=== PATIENT | female | born 1990 | race Caucasian/White ===

== ENCOUNTER 2022-05-01 08:09 | Outpatient (CLI) | payer BC, SELFPAY ==
[2022-05-01 11:04] LABS: Free T4 Free Thyroxine 1.12 ng/mL (0.78-2.19)
[2022-05-05 20:42] LABS: FSH 9.6 mIU/mL (***); LH 5.2 mIU/mL (***); Progesterone 0.5 ng/mL (***); Prolactin 62.5 ng/mL (***)
== END 2022-05-01 08:10 | disposition home or self-care (01) ==
LOC: ANHLAB 08:11
PROVIDERS: Visit Provider Obstetrics & Gynecology
DX: N92.6 Irregular menstruation, unspecified (principal)
CPT/HCPCS: 36415; 83001; 83002; 84144; 84146; 84439; 84443

== ENCOUNTER 2023-03-02 09:41 | Emergency (ER) | payer BC, SELFPAY ==
[2023-03-02 09:59] VITALS: BP 126/90; PULSE 81; RESP 16; TEMP 36.7; O2SAT 100
--- NOTE | 2023-03-02 10:14 | ED.ANIMALBIT ---
HPI - Animal Bite General Chief Complaint: Animal Bite Stated Complaint: Dog bite Time Seen by Provider: 03/02/23 10:15 Source: patient, RN notes reviewed and old records reviewed Mode of arrival: ambulatory Limitations: no limitations History of Present Illness HPI narrative: 32-year-old female who presents to [facility] with complaints of being bit on her left index finger by her dog last night with puncture wounds noted to distal aspect of left index finger with some swelling of finger. Patient denies any purulent drainage from her finger or intolerable discomfort. Patient reports that her dog's shots are up to date. She states that she is not sure when last tetanus was received. MD complaint: animal bite Onset (ago): day(s) (1) Animal: dog Description of animal: household pet Mechanism: bite Location: other (left index finger) Severity scale (1-10): 3 Treatments prior to arrival: other (cleansing of wound) Related Data Home Medications Medication Instructions Recorded Confirmed prenat.vits,navarro,[id number] 1 tablet PO DAILY 01/30/22 02/09/23 Allergies Allergy/AdvReac Type Severity Reaction Status Date / Time No Known Allergies Allergy Verified 03/02/23 10:05 Review of Systems Review of Systems: CONSTITUTIONAL: Denies fever, chills, or sweats. EYES: Denies visual changes, redness, or discharge. ENT: Denies rhinorrhea, congestion, sore throat, or otalgia. CARDIOVASCULAR: Denies chest pain, palpitations, or edema. RESPIRATORY: Denies cough or dyspnea. GASTROINTESTINAL: Denies abdominal pain, nausea, vomiting, or diarrhea. GENITOURINARY: Denies dysuria or hematuria. SKIN: Denies rash or itching.positive for puncture wounds to left index finger MUSCULOSKELETAL: Denies back pain, joint pain, or myalgia. NEUROLOGIC: Denies headache, numbness, or weakness. PSYCHIATRIC: Denies anxiety or depression. All systems reviewed & are unremarkable except as noted in HPI and below PMFSH Past Medical History Medical History Pituitary microadenoma Surgical History Surgical History History of knee surgery x 2 [place] teeth removed Family History Family History Father Hypertension Mother Family history of malignant neoplasm of breast in first degree relative Social History Social History Smoking status: Never smoker Second hand tobacco smoke exposure: No Alcohol intake: current Substance use: never Substance use type: does not use Lack of Transportation: No Lack of Food: Never True Current Housing: I Have Housing Concerned About Future Housing: No Difficulty Paying Gas/Electric Bills: No Difficulty Paying for Meds: No Currently Unemployed: No Education: Master's Degree or Higher Difficulty w/ Childcare or Family Care: No Comments At time of signature, agree with nursing past medical, surgical, social and family history. There is no relevant family history pertinent to the presenting complaint Exam Narrative: GENERAL: Well-appearing, well-nourished, and in no acute distress. HEAD: Normocephalic, atraumatic. EYES: PERRLA and EOMI. ENT: Nares clear, no rhinorrhea or epistaxis. Mucous membranes moist. NECK: Supple.no lymphadenopathy CHEST: Clear to auscultation. No respiratory distress. SAO2 100% on room air HEART: Regular rate and rhythm. No murmur heard. Normal peripheral pulses. ABDOMEN: Soft, nontender, nondistended, normal active bowel sounds. EXTREMITIES: Normal range of motion. No edema. SKIN: Warm, dry, no rash. 3 puncture wounds to left distal index finger with no injury to nail bed, some swelling to finger noted. Circulation, sensation and mobility present to left index finger NEURO: No focal deficits. Alert and oriented x3. Course Course Emerg
[2023-03-02] MEDS: TETANUS,DIPHTHERIA,AC PERTUSSIS ADULT (0.5 ML) BOOSTRIX IM (10:56)
== END 2023-03-02 10:49 | disposition home or self-care (01) ==
PROVIDERS: Emergency Provider Registered Nurse
DX: S61.251A Open bite of left index finger without damage to nail, initial encounter (principal); Z23 Encounter for immunization; W54.0XXA Bitten by dog, initial encounter
CPT/HCPCS: 90471; 90715; 99213; G0463

== ENCOUNTER 2023-10-06 15:55 | Outpatient (CLI) | payer BC, SELFPAY ==
[2023-10-06 16:15] VITALS: BP 127/64; PULSE 70
[2023-10-06 16:42] LABS: Basophils Percent Auto 0.2 % (0.2-1.2); Eosinophils Absolute Auto 0.2 K/mm3 (0-0.3); Eosinophils Percent Auto 1.4 % (0-4.4); Hematocrit 35.6 % (37.0-47.0); Hemoglobin 12.2 g/dL (12.0-15.0); Immature Granulocyte Absolute 0.08 K/mm3 (0.00-0.031); Immature Granulocyte Percent A 0.7 % (0-0.5); Lymphocytes Absolute Auto 1.91 K/mm3 (0.9-3.2); Mean Corpuscular HGB Conc 34.3 g/dl (32-36); Mean Corpuscular Hemoglobin 30.7 pg (26-34); Mean Corpuscular Volume 89.7 fl (80-100); Monocytes Absolute Auto 0.7 K/mm3 (0.1-0.6); Neutrophils Absolute Auto 8.4 K/mm3 (1.3-6.7); Neutrophils Percent Auto 74.7 % (45.5-73.1); Platelet Count Result 230 k/mm3 (150-375); Red Blood Count 3.97 M/mm3 (4.2-5.4); Red Cell Distribution Width 12.7 % (11.5-14.5); White Blood Count 11.2 K/mm3 (4.5-10.0)
[2023-10-06 16:45] VITALS: BP 127/64; PULSE 75
[2023-10-06 16:50] VITALS: BP 131/72; PULSE 66
[2023-10-06 16:55] LABS: Alanine Aminotransferase 10 U/L (6-35); Albumin Level 3.6 g/dL (3.5-5.1); Alkaline Phosphatase 75 U/L (38-126); Anion Gap 7 mmol/L (4-12); Aspartate Amino Transferase 17 U/L (14-36); Bilirubin,Total 0.2 mg/dL (0.2-1.3); Blood Urea Nitrogen 11 mg/dL (7-17); Calcium 8.9 mg/dL (8.4-10.2); Carbon Dioxide 21 mmol/L (22-30); Chloride 108 mmol/L (98-107); Estimated Glomerular Filt Rate > 60; Glucose 97 mg/dL (65-110); Potassium 3.6 mmol/L (3.4-5.0); Sodium 136 mmol/L (137-145); Uric Acid 4.1 mg/dL (2.5-7.5)
[2023-10-06 17:00] VITALS: BP 129/67; PULSE 65
[2023-10-06 17:03] LABS: Appearance Urine Clear (Clear); Bacteria Urine 2+ /hpf; Bilirubin Urine Negative (Negative); Blood Urine Negative (Negative); Color Urine Yellow (Yellow); Glucose Urine UA Negative (Negative); Ketones Urine Negative (Negative); Leukocyte Esterase Ur Trace LEU/UL (Negative); Need Manual Microscopic Reviewed; Nitrate Urine Negative (Negative); Non Pathogenic Casts 0-2; Protein Urine Negative (Negative); RBC Urine 0-2 /hpf (0-2); Specific Grav Ur 1.011 (1.001-1.035); Squamous Epithelial Cell Urine Occasional /hpf (Few); Urobilinogen Urine 0.2 mg/dL (<2.0)
[2023-10-06 17:04] LABS: Add Urine Microscopic? YES
[2023-10-06 17:15] VITALS: BP 130/68; PULSE 66
[2023-10-06 17:30] VITALS: BP 128/79; PULSE 65
[2023-10-06 17:33] LABS: HIV 1/2 Ab P24 Ag Result Negative (Negative)
--- NOTE | 2023-10-06 17:37 | PC.NURSE ---
Dr. Ortega notified of NST, lab results and vital signs. Okay to discharge
[2023-10-06 17:42] LABS: Creatinine Urine 48.7 mg/dL; Total Protein Urine Random 10 mg/dL; Ur Ttl Prot Creatinine Ratio 0.21 mg/mg (0-0.20)
[2023-10-07 13:43] LABS: Rapid Plasma Reagin Non-Reactive (NonReactive)
== END 2023-10-06 17:40 ==
LOC: ANHOBOP 16:01 → ANHOBPP 16:01
PROVIDERS: Visit Provider Obstetrics & Gynecology
DX: O13.9 Gestational [pregnancy-induced] hypertension without significant proteinuria, unspecified trimester (principal); Z3A.00 Weeks of gestation of pregnancy not specified
CPT/HCPCS: 36415; 59025; 80053; 81001; 82570; 84156; 84550; 85025; 86592; 86703; 87086; 99199; G0432

== ENCOUNTER 2023-10-14 01:09 | Outpatient (CLI) | payer BC, SELFPAY ==
--- NOTE | 2023-10-14 01:09 | PC.NURSE ---
Pt arrives to unit with leaking.
[2023-10-14 01:45] VITALS: TEMP 36.6
--- NOTE | 2023-10-14 01:49 | PC.NURSE ---
Updated Dr. Ireland on pt, negative ROM plus, tracing, and vital signs. Orders received to discharge pt with instructions on when to return to the unit and to keep next scheduled appointment.
[2023-10-14 01:50] VITALS: BP 134/73; PULSE 64
--- NOTE | 2023-10-14 01:57 | PC.NURSE ---
Pt discharged with instructions on when to return to the unit and to keep next scheduled appointment.
[2023-10-14 02:13] LABS: OBXCEM ROM Plus Negative
== END 2023-10-14 01:57 | disposition home or self-care (01) ==
LOC: ANHOBOP 01:53 → ANHLDR 10-19 15:34
PROVIDERS: Obstetrics & Gynecology; Visit Provider Obstetrics & Gynecology
DX: O42.90 Premature rupture of membranes, unspecified as to length of time between rupture and onset of labor, unspecified weeks of gestation (principal); Z3A.00 Weeks of gestation of pregnancy not specified
CPT/HCPCS: 59025; 84112; 99199

== ENCOUNTER 2023-11-03 13:34 | Outpatient (CLI) | payer BC, SELFPAY ==
--- NOTE | ~2023-11-03 | US_ITS ---
EXAMINATION: US OB limited DATE: 11/03/2023 14:50 INDICATION: Hypertension. Third trimester. TECHNIQUE: Real-time ultrasound of the pelvis was performed. COMPARISON: None. FINDINGS: There is a single fetus in vertex presentation. The placenta is anterior. heart rate is 148 be ats per minute (bpm). The amniotic fluid index is 11.4 cm cm, which is normal. IMPRESSION: 1. Single living fetus in vertex presentation. Reviewed, dictated and finalized at location A.
[2023-11-03 14:00] VITALS: BP 132/70; PULSE 67
[2023-11-03 14:11] LABS: Basophils Percent Auto 0.2 % (0.2-1.2); Eosinophils Absolute Auto 0.1 K/mm3 (0-0.3); Eosinophils Percent Auto 1.2 % (0-4.4); Hematocrit 37.6 % (37.0-47.0); Hemoglobin 12.8 g/dL (12.0-15.0); Immature Granulocyte Absolute 0.04 K/mm3 (0.00-0.031); Immature Granulocyte Percent A 0.5 % (0-0.5); Lymphocytes Percent Auto 18.2 % (18.3-44.2); Mean Corpuscular Hemoglobin 30.6 pg (26-34); Mean Platelet Volume 10.5 fl (7.4-10.4); Monocytes Absolute Auto 0.5 K/mm3 (0.1-0.6); Monocytes Percent Auto 5.9 % (2.6-8.5); Neutrophils Absolute Auto 6.1 K/mm3 (1.3-6.7); Platelet Count Result 243 k/mm3 (150-375); Red Blood Count 4.18 M/mm3 (4.2-5.4); Red Cell Distribution Width 12.7 % (11.5-14.5); White Blood Count 8.3 K/mm3 (4.5-10.0)
[2023-11-03 14:15] VITALS: BP 132/73; PULSE 72
[2023-11-03 14:21] LABS: Alanine Aminotransferase 12 U/L (6-35); Albumin Level 3.7 g/dL (3.5-5.1); Alkaline Phosphatase 122 U/L (38-126); Anion Gap 12 mmol/L (4-12); Aspartate Amino Transferase 19 U/L (14-36); Bilirubin,Total 0.3 mg/dL (0.2-1.3); Blood Urea Nitrogen 7 mg/dL (7-17); Calcium 8.8 mg/dL (8.4-10.2); Carbon Dioxide 18 mmol/L (22-30); Chloride 104 mmol/L (98-107); Estimated Glomerular Filt Rate > 60; Glucose 113 mg/dL (65-110); Potassium 3.6 mmol/L (3.4-5.0); Sodium 134 mmol/L (137-145); Uric Acid 5.8 mg/dL (2.5-7.5)
[2023-11-03 14:27] LABS: Appearance Urine Clear (Clear); Bacteria Urine 3+ /hpf; Bilirubin Urine Negative (Negative); Blood Urine Non-Hemolyzed Trace (Negative); Color Urine Yellow (Yellow); Creatinine Urine 56.2 mg/dL; Glucose Urine UA Negative (Negative); Ketones Urine Negative (Negative); Leukocyte Esterase Ur 2+ LEU/UL (Negative); Need Manual Microscopic Reviewed; Nitrate Urine Negative (Negative); Non Pathogenic Casts 0-2; Protein Urine Negative (Negative); RBC Urine 0-2 /hpf (0-2); Specific Grav Ur 1.006 (1.001-1.035); Squamous Epithelial Cell Urine Occasional /hpf (Few); Total Protein Urine Random 10 mg/dL; Ur Ttl Prot Creatinine Ratio 0.18 mg/mg (0-0.20); Urobilinogen Urine 0.2 mg/dL (<2.0); WBC Urine 21-50 /hpf (0-3); pH Urine 6.5 (5.0-9.0)
[2023-11-03 14:28] VITALS: BMI 35.6
[2023-11-03 14:29] VITALS: BP 132/70; PULSE 85
[2023-11-03 14:30] LABS: Add Urine Microscopic? YES
--- NOTE | 2023-11-03 15:14 | PC.NURSE ---
Dr. Ortega notified of NST, lab results, vital signs, and US. Orders received to [facility] home with 24 hour urine and discharge.
== END 2023-11-03 15:14 | disposition home or self-care (01) ==
LOC: ANHOBOP 13:36 → ANHOBPP 13:37
PROVIDERS: Visit Provider Obstetrics & Gynecology
DX: O13.9 Gestational [pregnancy-induced] hypertension without significant proteinuria, unspecified trimester (principal); Z3A.00 Weeks of gestation of pregnancy not specified
CPT/HCPCS: 36415; 59025; 76815; 80053; 81001; 82570; 84156; 84550; 85025; 87086; 99199

== ENCOUNTER 2023-11-04 16:27 | Outpatient (CLI) | payer BC, SELFPAY ==
[2023-11-04 16:27] VITALS: BMI 35.4
[2023-11-04 16:59] LABS: Collection Time Urine 24 HOURS
[2023-11-04 17:15] LABS: Total Volume 24 Hour Urine 2000 ml
[2023-11-04 17:15] LABS: Patient Weight 213 Lbs
[2023-11-04 17:16] LABS: Total Volume 24 Hour Urine 2000 ml
[2023-11-04 17:21] LABS: Total Protein Urine 24 Hr 200 mg/24hr (28-141); Total Protein Urine Random 10 mg/dL
[2023-11-04 17:22] LABS: Creatinine Clearance Urine 176.8 ml/min (75-125); Creatinine Urine 89.4 mg/dL
== END 2023-11-04 16:28 | disposition home or self-care (01) ==
LOC: ANHOBOP 16:36
PROVIDERS: Visit Provider Obstetrics & Gynecology
DX: Z34.90 Encounter for supervision of normal pregnancy, unspecified, unspecified trimester (principal); Z3A.00 Weeks of gestation of pregnancy not specified
CPT/HCPCS: 81050; 82575; 84156

== ENCOUNTER 2023-11-06 08:30 | Outpatient (RCR) | payer BC, SELFPAY ==
[2023-11-06 09:31] VITALS: BP 111/69; PULSE 68
== END 2024-02-04 23:59 | disposition home or self-care (01) ==
LOC: ANHOBOP 08:30
PROVIDERS: Visit Provider Obstetrics & Gynecology
DX: O26.893 Other specified pregnancy related conditions, third trimester (principal); R03.0 Elevated blood-pressure reading, without diagnosis of hypertension; Z3A.36 36 weeks gestation of pregnancy
CPT/HCPCS: 59025

== ENCOUNTER 2023-11-11 19:22 | Inpatient (IN) | payer BC, SELFPAY ==
[2023-11-11] VITALS (17 sets, daily range): BP systolic 108–135; BP diastolic 63–106; PULSE 55–85; TEMP 37.1; BMI 35.4
--- NOTE | 2023-11-11 19:22 | LDADM ---
This patient, Brook Sahu, was admitted to Labor/Delivery/Recovery 106 on 11/11/23 at 19:22. Plans for labor, pain management and were discussed with patient. Patient/family oriented to hospital policies and general routines including ID bracelet, bed and alarms, visiting hours, pain management, procedures, bathroom and other care routines, personal items, smoking policy, room service/diet and guest tray routines, infant security routines, and visiting hours. Patient/Family are encouraged to report perceived risks to care and to ask questions if they do not understand what they are told or what they should do. See OBIX for further documentation.
[2023-11-11 19:57] LABS: Basophils Percent Auto 0.2 % (0.2-1.2); Eosinophils Absolute Auto 0.1 K/mm3 (0-0.3); Eosinophils Percent Auto 0.9 % (0-4.4); Hematocrit 38.6 % (37.0-47.0); Hemoglobin 13.3 g/dL (12.0-15.0); Immature Granulocyte Absolute 0.05 K/mm3 (0.00-0.031); Immature Granulocyte Percent A 0.4 % (0-0.5); Lymphocytes Absolute Auto 2.63 K/mm3 (0.9-3.2); Lymphocytes Percent Auto 21.3 % (18.3-44.2); Mean Corpuscular HGB Conc 34.5 g/dl (32-36); Mean Corpuscular Hemoglobin 30.6 pg (26-34); Mean Corpuscular Volume 88.7 fl (80-100); Mean Platelet Volume 10.5 fl (7.4-10.4); Monocytes Absolute Auto 0.6 K/mm3 (0.1-0.6); Monocytes Percent Auto 4.9 % (2.6-8.5); Neutrophils Absolute Auto 8.9 K/mm3 (1.3-6.7); Neutrophils Percent Auto 72.3 % (45.5-73.1); Platelet Count Result 245 k/mm3 (150-375); Red Blood Count 4.35 M/mm3 (4.2-5.4); Red Cell Distribution Width 12.6 % (11.5-14.5); White Blood Count 12.3 K/mm3 (4.5-10.0)
[2023-11-11] MEDS: LACTATED RINGERS 1,000 ML 125 ML IV CONT (19:58)
[2023-11-11] MEDS: miSOPROStol 25 MCG TABLET BUCCAL (19:59)
[2023-11-11] MEDS: AMPICILLIN 2 GM/NS 100 ML 2 GM/100 ML BAG IVPB (19:59)
[2023-11-11 20:23] LABS: Rapid Plasma Reagin Non-Reactive (NonReactive)
[2023-11-11 20:26] LABS: Alanine Aminotransferase 11 U/L (6-35); Albumin Level 3.7 g/dL (3.5-5.1); Alkaline Phosphatase 119 U/L (38-126); Anion Gap 12 mmol/L (4-12); Aspartate Amino Transferase 20 U/L (14-36); Bilirubin,Total 0.3 mg/dL (0.2-1.3); Blood Urea Nitrogen 9 mg/dL (7-17); Calcium 9.4 mg/dL (8.4-10.2); Carbon Dioxide 19 mmol/L (22-30); Chloride 104 mmol/L (98-107); Estimated Glomerular Filt Rate > 60; Glucose 111 mg/dL (65-110); Potassium 3.6 mmol/L (3.4-5.0); Sodium 135 mmol/L (137-145); Uric Acid 5.6 mg/dL (2.5-7.5)
[2023-11-11 21:10] LABS: HIV 1/2 Ab P24 Ag Result Negative (Negative)
[2023-11-12] VITALS (157 sets, daily range): BP systolic 95–145; BP diastolic 42–105; PULSE 39–99; TEMP 36.3–37.3; O2SAT 79–100
[2023-11-12] MEDS: AMPICILLIN 1 GM/NS 50 ML 1 GM/50 ML BAG IVPB ×6 (00:02→20:17)
[2023-11-12] MEDS: miSOPROStol 25 MCG TABLET BUCCAL ×2 (00:02→04:33)
[2023-11-12] MEDS: miSOPROStol 25 MCG TABLET 50 MCG BUCCAL (09:34)
[2023-11-12] MEDS: OXYTOCIN 30 UNITS/NS 500 ML 30 UNITS/500 ML BAG IV CONT (14:07)
[2023-11-12] MEDS: LACTATED RINGERS 1,000 ML 125 ML IV CONT (18:24)
--- NOTE | 2023-11-12 22:11 | WPDANESEPP ---
Anes - Eval Pre Procedure Procedure: Labor epidural Date/Time: 11/12/23 22:11 Surgeon: Shannon Preop Diagnosis: Abdominal pain with contractions Pre Op Diagnosis: Induction of Labor Patient Data Age: 33 Gender: F Height: 1.65 m Weight: 96.5 kg Last Vital Signs Temp 99.1 F 11/12/23 20:00 Pulse 76 11/12/23 22:10 BP 127/58 L 11/12/23 22:10 Pulse Ox 98 11/12/23 22:10 O2 Del Method Room Air 11/11/23 20:45 Allergies Allergy/AdvReac Type Severity Reaction Status Date / Time No Known Allergies Allergy Verified 11/10/23 10:34 Home Medications Medication Instructions Recorded Confirmed Type prenat.vits,navarro,[id number] 1 tablet PO DAILY 01/30/22 11/09/23 History : gestational age HCG: positive Patient hx anesthesia problems: none Family hx anesthesia problems: none Results Review: All pre-operative results and documents have been reviewed as part of the pre-operative evaluation. COUNTS INCLUDE 234 BEDS AT THE [facility] Past Medical History Medical History (Updated 11/12/23 @ 22:13 by Leroy Amezquita Jr., CRNA) Gestational hypertension Obesity Pituitary microadenoma Prolactinoma Surgical History Surgical History History of knee surgery x 2 [place] teeth removed Family History Family History Father Hypertension Acute myocardial infarction Aneurysm Mother Family history of malignant neoplasm of breast in first degree relative Social History Social History Smoking status: Never smoker Second hand tobacco smoke exposure: No Alcohol intake: current Substance use: never Substance use type: does not use Do You Feel Safe in your Home?: Yes Lack of Transportation: No Lack of Food: Never True Current Housing: I Have Housing Concerned About Future Housing: No Difficulty Paying Gas/Electric Bills: No Difficulty Paying for Meds: No Currently Unemployed: No Education: Master's Degree or Higher Difficulty w/ Childcare or Family Care: No Spiritual care concerns: No Exam Day of Procedure 11/12/23 22:11 Patient weight: obese Heart: regular rate and rhythm Lungs: clear to auscultation Airway: Mallampati scale class II Neurological: alert and oriented
[2023-11-13] VITALS (168 sets, daily range): BP systolic 87–130; BP diastolic 44–86; PULSE 26–227; RESP 16–18; TEMP 36.6–37.6; O2SAT 82–100
[2023-11-13] MEDS: AMPICILLIN 1 GM/NS 50 ML 1 GM/50 ML BAG IVPB ×3 (00:20→07:50)
[2023-11-13] MEDS: LACTATED RINGERS 1,000 ML 125 ML IV CONT (06:15)
--- NOTE | 2023-11-13 07:47 | PM.IMHP ---
H&P: HPI History of Present Illness Date/Time: 11/13/23 07:47 Chief Complaint: Gestational hypertension Narrative: Patient is a 33 y/o G1 at 37 weeks with gestational hypertension admitted for medical induction of labor. No signs or symptoms of severe disease. course significant for history of prolactinoma. She stopped Car[place]oline at conception. No visual or headache symptoms throughout . She has been informed of diagnosis of PIH and risk and recommendation for delivery at 37 and risk of prolonging past the recommended delivery age. She has agreed with induction of labor. Review of Systems Review of Systems: All systems reviewed & are unremarkable except as noted in HPI and below Constitutional: Constitutional: Reports no additional constitutional complaints and Denies headache(s) Eyes: Eyes: Denies spots in vision ENT: Reports system reviewed and no additional complaints, except as documented and Denies headache(s) Cardiovascular: Cardiovascular: Denies chest pain and Denies dyspnea Respiratory: Respiratory: Denies dyspnea Gastrointestinal: Gastrointestinal: Reports no additional gastrointestinal complaints Genitourinary: Genitourinary: Reports amenorrhea Musculoskeletal: Musculoskeletal: Reports no additional musculoskeletal complaints Integumentary/Breasts: Skin/Breast: Denies breast mass and Denies rash Neurologic: Denies headache(s) Psychiatric: Psychiatric: Reports no additional psychiatric complaints [facility] Past Medical History Medical History (Updated 11/13/23 @ 07:55 by Fabian Ortega MD) Gestational hypertension Obesity Pituitary microadenoma Prolactinoma Surgical History Surgical History History of knee surgery x 2 [place] teeth removed Family History Family History Father Hypertension Acute myocardial infarction Aneurysm Mother Family history of malignant neoplasm of breast in first degree relative Social History Social History Smoking status: Never smoker Second hand tobacco smoke exposure: No Alcohol intake: current Substance use: never Substance use type: does not use Do You Feel Safe in your Home?: Yes Lack of Transportation: No Lack of Food: Never True Current Housing: I Have Housing Concerned About Future Housing: No Difficulty Paying Gas/Electric Bills: No Difficulty Paying for Meds: No Currently Unemployed: No Education: Master's Degree or Higher Difficulty w/ Childcare or Family Care: No Spiritual care concerns: No Meds Home Medications and Allergies Home Medications Medication Instructions Recorded Confirmed Type prenat.vits,navarro,[id number] 1 tablet PO DAILY 01/30/22 11/09/23 History Allergies Allergy/AdvReac Type Severity Reaction Status Date / Time No Known Allergies Allergy Verified 11/10/23 10:34 Vital Signs Vital Signs - 24 hr 11/12/23 08:00 11/12/23 08:45 11/12/23 12:55 Temperature Pulse Rate 70 71 72 Blood Pressure 115/72 117/67 138/77 Pulse Oximetry 11/12/23 13:00 11/12/23 13:15 11/12/23 13:30 Temperature Pulse Rate 72 71 72 Blood Pressure 132/74 127/79 139/81 Pulse Oximetry 11/12/23 13:45 11/12/23 14:00 11/12/23 14:15 Temperature Pulse Rate 73 71 76 Blood Pressure 131/77 130/77 124/73 Pulse Oximetry 11/12/23 14:30 11/12/23 14:45 11/12/23 15:00 Temperature 97.9 F Pulse Rate 71 71 67 Blood Pressure 134/73 129/80 131/79 Pulse Oximetry 11/12/23 15:15 11/12/23 15:30 11/12/23 15:46 Temperature Pulse Rate 74 69 69 Blood Pressure 139/82 143/71 H 136/84 Pulse Oximetry 11/12/23 16:00 11/12/23 16:15 11/12/23 16:31 Temperature Pulse Rate 65 69 68 Blood Pressure 141/63 H 128/69 128/105 H Pulse Oximetry 11/12/23 17:00 11/12/23
[2023-11-13] MEDS: SODIUM CHLORIDE 0.9% IV 300 ML 600 ML I-UTERINE (07:51)
--- NOTE | 2023-11-13 07:56 | PM.OBPNVD ---
OB - PN: Subj Subjective Date/time seen: 11/12/2330 Cat 1, irreg ctx, cervix /-3, will give another dose of Cytotec 50 buccal. OB - PN: Obj Data Labs 11/11/23 19:38 11/11/23 19:38 OB - PN A/P Time Spent With Patient Time: Total time spent is greater than 50% in coordination of care (as documented) at patient's floor/unit and/or counseling patient:
--- NOTE | 2023-11-13 07:57 | PM.OBPNVD ---
OB - PN: Subj Subjective Date/time seen: 11/12/23 45680 AROM clear OB - PN: Obj Data Labs 11/11/23 19:38 11/11/23 19:38 OB - PN A/P Time Spent With Patient Time: Total time spent is greater than 50% in coordination of care (as documented) at patient's floor/unit and/or counseling patient:
--- NOTE | 2023-11-13 07:58 | PM.OBPNLAB ---
Pain Control Date/time seen: 11/13/23 0800 Cat 2, 135, irreg ctx, cervix 7, continue Pitocin.
[2023-11-13] MEDS: OXYTOCIN 30 UNITS/NS 500 ML 30 UNITS/500 ML BAG 125 UNITS IV CONT (11:07)
--- NOTE | 2023-11-13 13:20 | P.PCNOB_ITS ---
OB - Vaginal Delivery Note Procedure Delivery date: 11/13/23 Events: Gestational Hypertension and Positive Group B Strep (GBS) Induction method: Per Misoprostol Protocol and Per Pitocin Protocol Delivery augmentation: Rupture of Membranes Delivery monitor: External FHT and Internal Uterine Route of delivery: Laceration Description: Vaginal ( small) and Labial ( [place] small) Narrative: She was admitted for [facility] for gestational hypertension without severe features. PIH labs on admission without any severe features. She had Cytotec times several doses and then she had assisted rupture membranes Pitocin was then started several hours after that. She did receive an IUPC. During labor tracing significant for occasional decelerations and a bradycardic episode this did resolve. Her Pitocin was stopped and then she made slow progress and Pitocin was then restarted and she progressed to complete. was vigorously crying upon delivery 's nose and mouth were suctioned at perineum with the bulb. Infant placed on maternal abdomen after the tight nuchal cord was surgically reduced. Cord blood and cord gases obtained. Pitocin continued and placenta delivered spontaneously and intact. She sustained a small vaginal laceration on the left and a small superior labial minora laceration both repaired with 3-0 Vicryl. Patient tolerated procedure well. EBL 150 cc. Baby Date of : 11/13/23 Time of : 10:35 Gestational Age by Date: 37 gender: Female Weight (pounds): 5 Weight (ounces): 11 presentation: vertex position: Right Occiput Anterior Placenta delivery description: Spontaneous Cord Vessel Description: 3 Vessels, Nuchal Cord (x1), Tight and Reduced (surgical) score one minute: 8 score five minutes: 9
--- NOTE | 2023-11-13 16:19 | OBPPTRN ---
1330-Patient transferred to post room # via ( ). Support person present. Oriented to unit, room, information board, rooming in, admission packet and security measures. Patient verbalizes understanding.
--- NOTE | 2023-11-13 16:25 | PC.NURSE ---
1540. Introductions were made, then consulted with patient to assess needs related to . Mother reports that her primary intent is to exclusively BF for babies 1st year of life, with introducing bottles so she can combo feed when she goes back to work. Encouraged understanding of the benefits of skin to skin (demonstrating unwrapping infant and placing upright on her chest), stimulating with massage touch, changing positions to encourage wakefulness, how to watch for early feeding cues, responsive feeding, feeding on demand (aiming for 8-12 times in 24 hours, about every 2-3 hours), milk production, building/maintaining a milk supply, duration of feeding, signs of adequate intake/output and how to record on the feeding sheet. Reviewed positioning with ear, shoulder, hip alignment, supporting the breast to facilitate a deep latch, asymmetrical latch (off-center), leading with the chin with a big, open, wide gape and body close to mother. struggled with many attemts to latch optimally to the R breast in cross-cradle position. Infant latched but did not continue to suckle after many repeated attempts, infant was sleepy. Mom encouraged to do S2S and try again when baby shows early feeding cues. Reviewed comfort measures of healing with a warm, wet washcloth to rinse breast, then leave open to air-dry, good handwashing when or touching the breast/nipples to prevent infection. Mother voiced understanding of skin to skin, stimulating with massage touch, responsive feedings, hand expressed colostrum, talking to to encourage if it has been 2 -2.5 hours since the start of the last , to call if infant does not latch, or if there is discomfort with . Resources used for education were facilitated with the visual educational handouts & mom and baby guide. Inpatient resources provided with feeding sheet, name written on the communication board, and the mom/baby guide. Parents voiced understanding of information, demonstrated learning and will call if there is a request for assistance. Reported to the Primary RN.
--- NOTE | 2023-11-13 17:40 | PC.NURSE ---
1730. Helped mom attempt to relatch and feed baby. She was showing an early sign of hunger cue with some stirring, and rapid eye movement. Baby was unsuccessful in latching due to acting to sleepy. Mom was able to hand express a few drops of colostrum and feed them to baby.Mom encouraged to do some more S2S and try to feed baby again when she shows early hunger cues. Hunger cues reviewed with mom and dad. Reported to primary RN.
[2023-11-13] MEDS: ACETAMINOPHEN 325 MG TABLET 650 MG PO (22:47)
[2023-11-14] VITALS: BP 129/75; PULSE 72; RESP 18; TEMP 37.1; O2SAT 99
[2023-11-14 04:00] VITALS: BP 117/84
--- NOTE | 2023-11-14 07:40 | PC.NURSE ---
Observed mother latching to the [right] breast in [football] position. [was not] able to maintain an appropriate latch for more than a few sucks. Mother [declines] nipple pain/discomfort [throughout feeding]. Discussed with parents that it is typical for babies to be off and on the breast for feedings during the first 24 hours. As wakes more throughout the day, she will hopefully maintain a latch better when she sucks more consistently. Encouraged mother to keep awake and nursing at the breast for 15 minutes. Mother taught to listen for infant swallowing during feedings. Reviewed using the blue feeding sheet to record time and duration of feeding. Mother voiced understanding of the education shared, to call for assistance if the infant does not latch or if there is discomfort with . Reported to the Primary RN.? ?
[2023-11-14 08:00] VITALS: BP 122/79; PULSE 65; RESP 16; TEMP 36.5; O2SAT 97
--- NOTE | 2023-11-14 08:36 | PM.OBPNVD ---
OB - PN: Subj Subjective Date/time seen: 11/14/23 08:05 Narrative: PPD#1 Brook reports doing well today. 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 Her pain is controlled. She is tolerating regular diet, voiding, passing gas, and ambulating without issues. She is breast feeding. OB - PN: Obj Data Labs 11/14/23 04:01 11/11/23 19:38 OB - PN A/P Assessment and Plan (1) Vaginal delivery: Code(s): O80 - Encounter for full-term uncomplicated delivery Status: Acute (2) Gestational hypertension: Qualifiers: Trimester: third trimester Qualified Code(s): O13.3 - Gestational [-induced] hypertension without significant proteinuria, third trimester Code(s): O13.9 - Gestational [-induced] hypertension without significant proteinuria, unspecified trimester Status: Acute Plan day: 1 Plan: routine care Comments: - PO pain meds - Regular diet - Ambulation and hydration encouraged - Continue putting baby to breast q2-3hr Time Spent With Patient Time: Total time spent is greater than 50% in coordination of care (as documented) at patient's floor/unit and/or counseling patient: Review of Systems Constitutional: Constitutional: Denies chills, Denies fever(s) and Denies headache(s) Eyes: Eyes: Denies change in vision ENT: Denies dizziness and Denies headache(s) Cardiovascular: Cardiovascular: Denies chest pain, Denies palpitations and Denies dyspnea Respiratory: Respiratory: Denies cough and Denies dyspnea Gastrointestinal: Gastrointestinal: Denies nausea and Denies vomiting Neurologic: Denies dizziness and Denies headache(s) Endocrine: Endocrine: Denies palpitations Exam Const: General: cooperative, comfortable and no acute distress Orientation/consciousness: patient oriented x3 Resp: Effort & Inspection: normal respiratory effort Auscultation: clear to auscultation bilaterally Cardio: Rate: regular rate GI: Inspection: non-distended GI Palp: No abdominal tenderness and Yes Soft to palpation Auscultation: normal bowel sounds : Other: fundus firm Skin: General skin exam: normal color Neuro: General: patient oriented x3 Extrem: General: normal to inspection Psych: Appearance: grossly normal Affect: normal affect Attitude: cooperative
[2023-11-14] MEDS: ACETAMINOPHEN 325 MG TABLET 650 MG PO ×2 (08:54→20:59)
[2023-11-14] MEDS: DOCUSATE SODIUM 100 MG CAPSULE PO (08:55)
[2023-11-14] MEDS: MULTIVIT/MIN/PREN/FOL AC/IRON TABLET 1 TAB PO (08:55)
--- NOTE | 2023-11-14 09:51 | WPDANLDPN2 ---
Anes-Prog Note L&D Date/Time: 11/14/23 09:51 Comfortable throughout: labor and delivery Neuraxial method: epidural Epidural/Spinal procedure site: clean & non-tender Neuro status: Neuro function grossly intact. Cardiovascular status: normal Respiratory status: normal Airway patency: baseline Mental status: baseline Post-Op hydration status: normal Vital Signs: Last Vital Signs Temp 37.1 C 11/14/23 00:00 Pulse 72 11/14/23 00:00 Resp 18 11/14/23 00:00 BP 117/84 11/14/23 04:00 Pulse Ox 99 11/14/23 00:00 O2 Del Method Room Air 11/13/23 20:00 Pain score (VAS): 2 I/O: Intake & Output 11/13/23 11/14/23 11/14/23 23:59 07:59 15:59 Intake Total 1774 Output Total 1050 9310 Balance -1050 -766 Post-procedural complaints: none Patient feedback: Patient satisfied with anesthetic care.
[2023-11-14 13:45] VITALS: BP 122/72; PULSE 66; RESP 16; TEMP 36.7; O2SAT 97
[2023-11-14 17:00] VITALS: BP 133/73; PULSE 64; RESP 16; TEMP 36.8; O2SAT 98
[2023-11-14 21:25] VITALS: BP 135/75; PULSE 63; RESP 16; TEMP 36.1; O2SAT 100
[2023-11-15 06:37] VITALS: BP 123/70; PULSE 75; RESP 16; TEMP 36.4
[2023-11-15 08:00] VITALS: BP 123/72; PULSE 64; RESP 16; TEMP 36.5; O2SAT 97
[2023-11-15] MEDS: MULTIVIT/MIN/PREN/FOL AC/IRON TABLET 1 TAB PO ×2 (08:41→08:42)
[2023-11-15] MEDS: DOCUSATE SODIUM 100 MG CAPSULE PO ×2 (08:41→08:43)
--- NOTE | 2023-11-15 09:24 | PM.DS ---
DS: Admitting Diagnosis Discharge Date 11/15/23 <Chely Frazier MD - Last Filed: 11/15/23 09:24> Admitting Diagnosis Gestational hypertension without severe symptoms. <Fabian Ortega MD - Last Filed: 11/19/23 19:02> DS: Discharge Diagnosis Discharge Diagnosis (1) Gestational hypertension: Code(s): O13.9 - Gestational [-induced] hypertension without significant proteinuria, unspecified trimester <Fabian Ortega MD - Last Filed: 11/19/23 19:02> Status: Acute <Fabian Ortega MD - Last Filed: 11/19/23 19:02> (2) Vaginal delivery: Code(s): O80 - Encounter for full-term uncomplicated delivery <Fabian Ortega MD - Last Filed: 11/19/23 19:02> Status: Acute <Fabian Ortega MD - Last Filed: 11/19/23 19:02> DS: Summary Hospital Course Reason for hospitalization: Induction of labor <Fabian Ortega MD - Last Filed: 11/19/23 19:02> Hospital Course: She was admitted for induction of labor. She had 2 doses of Cytotec. She then had Pitocin augmentation and assisted rupture of membranes. She progressed to complete and had an uncomplicated vaginal delivery. No severe pre-e symptoms or blood pressures intrapartum. <Fabian Ortega MD - Last Filed: 11/19/23 19:02> Status at Discharge Functional status at discharge: independent ambulation <Fabian Ortega MD - Last Filed: 11/19/23 19:02> Overall status at discharge: patient is back to baseline <Chely Frazier MD - Last Filed: 11/15/23 09:24> Time Spent with Patient Time attestation: Total time spent providing and/or coordinating discharge services: <Fabian Ortega MD - Last Filed: 11/19/23 19:02> Exam Const: General: cooperative <Fabian Ortega MD - Last Filed: 11/19/23 19:02> General: healthy appearing, comfortable, no acute distress and obese <Chely Frazier MD - Last Filed: 11/15/23 09:24> Orientation/consciousness: oriented to person, oriented to place and oriented to time <Fabian Ortega MD - Last Filed: 11/19/23 19:02> HENMT: Face/Nose/Sinus: Normal external nose present <Fabian Ortega MD - Last Filed: 11/19/23 19:02> Eyes: General: appearance normal, both eyes and all related structures <Fabian Ortega MD - Last Filed: 11/19/23 19:02> Resp: Effort & Inspection: normal respiratory effort <Fabian Ortega MD - Last Filed: 11/19/23 19:02> Auscultation: clear to auscultation bilaterally <Chely Frazier MD - Last Filed: 11/15/23 09:24> Cardio: Rate: regular rate <Chely Frazier MD - Last Filed: 11/15/23 09:24> GI: Inspection: normal to inspection <Fabian Ortega MD - Last Filed: 11/19/23 19:02> GI Palp: No abdominal tenderness and Yes Soft to palpation <Chely Frazier MD - Last Filed: 11/15/23 09:24> Auscultation: normal bowel sounds <Chely Frazier MD - Last Filed: 11/15/23 09:24> : Other: fundus firm <Chely Frazier MD - Last Filed: 11/15/23 09:24> Skin: General skin exam: normal color <Fabian Ortega MD - Last Filed: 11/19/23 19:02> Neuro: General: oriented to person, oriented to place and oriented to time <Fabian Ortega MD - Last Filed: 11/19/23 19:02> Extrem: General: normal to inspection and no calf tenderness <Fabian Ortega MD - Last Filed: 11/19/23 19:02> Psych: Appearance: grossly normal <Fabian Ortega MD - Last Filed: 11/19/23 19:02> Mental Status: mental status grossly normal <Fabian Ortega MD - Last Filed: 11/19/23 19:02> Affect: normal affect <Chely Frazier MD - Last Filed: 11/15/23 09:24> Attitude: cooperative <Chely Frazier MD - Last Filed: 11/15/23 09:24> DS: Data Data Completed and Pending Pending studies at discharge: Pending at discharge 11/13/23 10:39 Surgical [PTH] Routine <Fabian Ortega MD - Last Filed: 11/19/23 19:02> Discharge Plan Discharge Attending physician on discharge: Shannon
[2023-11-15] MEDS: MEASLES,MUMPS,RUBELLA VACCINE 0.5 ML VIAL SUB-Q (11:50)
[2023-11-16 08:21] VITALS: BP 139/74; PULSE 67; RESP 18; TEMP 36.8; O2SAT 99
== END 2023-11-15 12:25 | disposition home or self-care (01) | DRG 807 ==
LOC: ANHLDR 11-13 13:15 → ANHOB2 11-15 11:18 → ANHLDR 11-17 11:00 → ANHOB2 11-17 11:00
PROVIDERS: Admitting Provider Obstetrics & Gynecology; Visit Provider Obstetrics & Gynecology
DX: O13.4 Gestational [pregnancy-induced] hypertension without significant proteinuria, complicating childbirth (principal); Z37.0 Single live birth; Z3A.37 37 weeks gestation of pregnancy; O42.02 Full-term premature rupture of membranes, onset of labor within 24 hours of rupture; O99.824 Streptococcus B carrier state complicating childbirth; O69.81X0 Labor and delivery complicated by cord around neck, without compression, not applicable or unspecified; O70.0 First degree perineal laceration during delivery
CPT/HCPCS: 36415; 80053; 84550; 85014; 85018; 85025; 86592; 86703; 86850; 86900; 86901; 88307; 90710; A9270; G0432; J0290; J2590; J2795; J7030; J7120

== ENCOUNTER 2023-11-26 08:27 | Outpatient (CLI) | payer BC, SELFPAY ==
--- NOTE | 2023-11-26 10:00 | PC.NURSE ---
In- 0835 Out- 1000 Reason for visit: no weight gain, possible low milk supply History: Brook was referred by Dr. Ahuja's office to make an appointment to assess infants feeding ability and mother's milk production. appears to be feeding well at the breast but has not been gaining weight as expected. Mom says has been going well since delivery and she felt that her milk came in at day 4. She hasn't been pumping or supplementing until she saw peds yesterday and they ordered baby to be supplemented with 1-2 ounces after each . Mom has her own [employer] pump that she used yesterday for the first time. 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 She was diagnosed about 2 years ago. There were some issues with her menstrual cycles and becoming after she had her IUD removed, but after diagnosis, she was minimally medicated and became quickly. She no longer takes any medications for the adenoma. We discussed in detail the risks for low milk production, including endocrine and pituitary anomalies. She is following up with endocrine in December. History: Celeste was born at 37 weeks due to mother's diagnosis of preeclampsia. She will be 2 weeks old tomorrow. She has had adequate output, no issues with jaundice, and feeds about 10 times every 24 hours. The length of feeding times are about 20-45 minutes. Mom has to wake baby up mid feeding to offer the second breast, but baby is feeding from both breasts at most feedings. Mom says she hears a lot of swallows and baby seems satisfied after most feedings. Observations: Observed mom latching Celeste to the right breast in football. Mom does an excellent job with positioning and latch. Baby seems eager and does get sleepy after about 15 minutes. Mom stimulates her to wake and switches breasts, burping in between. Mom latched baby equally as well on the left breast in football. She is not having any nipple pain and feels like the latch is comfortable and deep. There doesn't appear to be any adjustments that need to be made as far as latch or positioning. Mom did say she used to have her nipples pierced and we discussed how that shouldn't affect , thought she may leak through the pierced holes. Baby did have intermittent swallows throughout the feeding, sometimes heavier and more frequent than others. Mom says she does sometimes feel a letdown sensation. Her breasts feel firmer before feeding and softer after feeding. There are no plugged ducts. In the morning, mom feels the most firm and she says when she feels the letdown sensation, she can often tell that baby is gulping more. Mom's nipples are rounded after baby feeds, not pinched or smashed. Mom is very knowledgeable and knows to watch for open hands at the end of feeding. With our pre and post feed weights, it appears infant transferred about 24ml of breastmilk. We reviewed that baby is early, and sometimes late babies can appear to feed well but may not have a strong enough jaw and suck to transfer as much milk as needed. Mom's breasts will only make the amount of milk that baby is removing, so if mom's milk supply is low right now, it is very possibly due to ineffective milk transfer, rather than a hormonal imbalance. However, due to mom's history, we discussed in detail that she is at risk for a low production. Mother is encouraged that we have a plan in place. weight: 5#11 Discharge weight: 5#5 Lowest weight: 5#2 Last weight: 5#4 (peds office yesterday 11/24) Pre-feed weight:5#2 (2328g) Post-feed weight: 5#3 (2352g) Plan of Care: Mother will limit to 20 minutes, keeping baby awake and feeding as effectively as possible. She will focus on feeding from one breast at each feeding and then pump both breasts for 15 minutes after each with her double electric breast pump. Mother has been instructed by the police liaison officer to suppl
== END 2023-11-26 08:28 | disposition home or self-care (01) ==
LOC: ANHOBOP 08:30
PROVIDERS: Visit Provider Pediatrics
DX: Z39.1 Encounter for care and examination of lactating mother (principal)
CPT/HCPCS: 99203; G0463